=== PATIENT | female | born 1995 | race Caucasian/White ===

== ENCOUNTER 2023-10-02 07:24 | Inpatient (IN) ==
--- NOTE | 2023-09-14 16:37 | History & Physical Report ---
Date of Service September 14, 2023 Assessment & Plan (1) Previous delivery affecting : Plan: Intrauterine at 39+ weeks with prior section for failure to progress presents for repeat section. Procedure and its risks were reviewed with the patient and her sister and all questions were answered to their satisfaction. History of Present Illness Primary Care Provider: NO PCP Patient is a 28-year-old 2 para 1-0-0-1 female EDC 10/06/2023 who presents for repeat section. First section was done because of failure to progress. has been complicated by absence of CSP on anatomy scan at 20 weeks. M consultation with MRI revealed that the CSP is present. The placenta was also initially low-lying but that has since resolved. Polyhydramnios was also affecting the during the second trimester but this again has resolved. GBS is negative Allergies Allergy/AdvReac Type Severity Reaction Status Date / Time No Known Allergies Allergy Verified 08/28/23 13:54 Home Medications Medication Instructions Recorded Confirmed Type [id number] acid PO 03/27/23 08/28/23 History valacyclovir 500 mg tablet 500 mg PO BID PRN outbreak #18 tabs 03/29/23 08/28/23 Rx (Valtrex) Patient History Medical History (Updated 07/19/23 @ 11:49 by Mariah Worthy) Varicella vaccine Surgical History (Updated 09/14/23 @ 16:38 by Merle Lomas MD, FACOG) History of Family History (Updated 03/27/23 @ 10:55 by Christy Hernández, TOD) Grandmother (Maternal) Breast cancer Mother Colorectal cancer Grandfather (Maternal) Colorectal cancer Denies family history of Ovarian cancer Prostate cancer Social History (Updated 03/27/23 @ 10:57 by Christy Hernández, TOD) Smoking Status: Never smoker Do You Dip or Chew Tobacco: No; marital status: Single marital status details: FOB Chuck Cat (27). Pt sister Sherri - [phone] Current Living Situation: Significant Other Current Living Situation Comment: lives with FOB, and pts father, 2 cats(fob changing litter), 1 dog. current occupational status: employed current occupation: [employer] Review of Systems All systems reviewed & are unremarkable except as noted in HPI & below Physical Exam Constitutional: WD/WN, vitals as above Respiratory: normal respiratory effort, lungs clear to auscultation Cardiovascular: RRR, no murmur, no edema Psychiatric: A+Ox3, euthymic affect Genitourinary: OB Exam Abdomen: + fundal height (term), + heart tones (150) and + vertex Coding Level of Care Code None Diagnoses Previous delivery affecting O34.219
--- NOTE | 2023-09-25 14:43 | Anesthesiology Consultation ---
Date of Service September 25, 2023 Assessment & Plan (1) Encounter for pre-operative examination: - Per art framing manager on 09/25/23: COVID greater than 10 days from surgery date, symptoms resolved. Chart Review Chart Review: entry level management initiated History Surgery Operation Date: 10/02/23 10:50 Proposed Procedures p Section (Delivery of Baby Through Abdominal Incision) - Merle Lomas MD, FACOG Height/Weight Height: 5 ft 4 in Weight: 67.132 kg Allergies Allergy/AdvReac Type Severity Reaction Status Date / Time No Known Allergies Allergy Verified 09/25/23 13:46 Medications Home Medications Medication Instructions Recorded Confirmed Last Taken valacyclovir 500 mg tablet 500 mg PO BID PRN outbreak #18 tabs 03/29/23 09/25/23 Unknown (Valtrex) vit no.95-ferrous 1 tab PO QAM 09/25/23 09/25/23 Unknown fumarate 28 mg-folic acid 800 mcg tablet () Past Medical History Medical History (Updated 09/25/23 @ 14:42 by Jennifer Spencer PA-C) Anxiety History of COVID-19 09/17/2023--via home test---body aches, chills, sneezing, sore throat, sore ears, fatigue, fever--per pt all symptoms resolved Past Family History Family History Grandmother (Maternal) Breast cancer Mother Colorectal cancer Grandfather (Maternal) Colorectal cancer Other No family history of adverse response to anesthesia Denies family history of Ovarian cancer Prostate cancer Past Surgical History Surgical History History of History of wisdom tooth extraction Social History Smoking Status: Never smoker Do You Dip or Chew Tobacco: No Hx Alcohol Use: No Hx Substance Use: No substance use type: does not use
--- NOTE | 2023-10-02 07:46 | History & Physical Bridge Note ---
Date of Service October 02, 2023 History & Physical Bridge Note I have examined the patient, reviewed the History & Physical and in the interval since the performance of the History & Physical I have noted the following changes of clinical significance: no changes noted
[2023-10-02] MEDS: LACTATED RINGER'S 1,000 ML IV SCH ×2 (09:00→13:28)
[2023-10-02] MEDS: ACETAMINOPHEN 500 MG TAB PO STA (09:20)
[2023-10-02 09:51] LABS: Hematocrit (blood only) 35.7 % (37.0-47.0); Hemoglobin 11.4 g/dl (12.0-16.0); Mean Corpuscular Hemoglobin 26.5 pg (25.0-34.0); Mean Corpuscular Hgb Conc 31.9 g/dL (32.0-36.0); Mean Corpuscular Volume 82.8 fL (80.0-100.0); Mean Platelet Volume 11.8 fL (9.4-12.4); Platelet Count 213 K/uL (130-400); Red Blood Count 4.31 M/uL (4.20-5.40); White Blood Count 9.43 K/ul (4.8-10.8)
[2023-10-02] MEDS: CITRIC ACID/SODIUM CITRATE 15 ML UDC PO SCH (10:03)
[2023-10-02] MEDS ORDERED: MoRPHine SULFATE PF 1 MG/ML 10 ML AMP/VIAL ONE (10:31)
[2023-10-02] MEDS: ACETAMINOPHEN 500 MG TAB PO SCH (10:34)
[2023-10-02] MEDS: ceFAZolin 2000MG 2,000 MG/15 ML SYR IV SCH (10:39)
[2023-10-02] MEDS ORDERED: ePHEDrine sulfate 50 MG/ML AMP IV PRN (11:17)
[2023-10-02] MEDS ORDERED: NALOXONE HCL 0.08 MG in SYRINGE 1.8 ML IV PRN (11:17)
[2023-10-02] MEDS ORDERED: LACTATED RINGER'S 500 ML IV PRN (11:17)
[2023-10-02] MEDS ORDERED: NALBUPHINE HCL 5 MG in SYRINGE 0 ML IV PRN (11:17)
[2023-10-02] MEDS ORDERED: NALOXONE HCL 1 MG in SODIUM CHLORIDE 0.9% 1,000 ML IV PRN (11:17)
[2023-10-02] MEDS ORDERED: NALOXONE HCL 0.4 MG/1 ML VIAL/CARP IV PRN (11:17)
[2023-10-02] MEDS ORDERED: diphenhydrAMINE 50 MG/ML VIAL IV PRN ×2 (11:17→12:24)
[2023-10-02] MEDS ORDERED: PHENYLEPHRINE 100MCG/ML 10ML SYR IV ONE ×2 (11:21→11:57)
[2023-10-02] MEDS ORDERED: fentaNYL citrate PF 100 MCG/2 ML VIAL ONE (11:23)
[2023-10-02] MEDS ORDERED: NO NARCOTICS OR SEDATIVES SCH (11:30)
[2023-10-02] MEDS ORDERED: DC INTRASPINAL MORPHINE SCH (11:30)
[2023-10-02] MEDS ORDERED: ONDANSETRON INJ 2 MG/ML 2 ML VIAL ONE (11:46)
[2023-10-02] MEDS ORDERED: CALCIUM CARBONATE 500 MG CHEWABLE TAB PO PRN ×2 (11:47→12:24)
[2023-10-02] MEDS ORDERED: diphenhydrAMINE Capsule 25 MG CAP PO PRN ×2 (11:47→12:24)
[2023-10-02] MEDS ORDERED: HYDROCORTISONE ACETATE 25 MG SUPP PR PRN ×2 (11:47→12:24)
[2023-10-02] MEDS ORDERED: ONDANSETRON INJ 2 MG/ML 2 ML VIAL IV PRN ×3 (11:47→12:24)
[2023-10-02] MEDS ORDERED: MAGNESIUM HYDROXIDE SUSP 30 ML UDC PO PRN ×2 (11:47→12:24)
[2023-10-02] MEDS ORDERED: DIPHTHER/TETAN/PERTUS Vaccine (Tdap, Adol/Adult) 0.5mL IM ONE (11:47)
[2023-10-02] MEDS ORDERED: BENZOCAINE 20% SPRY 85 APPLN/85 GM CAN EXT PRN (11:47)
[2023-10-02] MEDS ORDERED: SENNA 8.6 MG TAB PO PRN ×2 (11:47→12:24)
--- NOTE | 2023-10-02 11:54 | Post Operative Brief Note ---
Immediate Post Op Note Date of Surgery October 02, 2023 Pre & Post Diagnosis Operation Date: 10/02/23 09:05 Pre-Op Dx- IUP at term prior C/S desires repeat C/S Post-Op Dx- same plus delivery of viable malex I identified the patient and participated in the time-out.: Yes Procedure Operation Date: 10/02/23 09:05 Actual Procedures p Section in LD with result of live male child at 1119 - Merle Lomas MD, FACOG Surgeon Merle Lomas MD, FACOG Deck And Hull Assembler Dr. Philip Best Quantitative Blood Loss (QBL) 461 Findings Consistent with Post-Op Diagnosis Specimens Specimen Description: A: Placenta B: Cord Blood Drains Durham Catheter (Durham placed in OR, draining clear yellow urine. Patient tolerated procedure well.) Anesthesia Type Spinal Complications none Disposition Accompanied Patient To Recovery: Yes Disposition: L&D
[2023-10-02] MEDS ORDERED: OXYTOCIN 10 UNITS/ML VIAL ONE (11:56)
[2023-10-02] MEDS ORDERED: IBUPROFEN 600 MG TAB PO SCH ×2 (12:00→12:30)
[2023-10-02] MEDS ORDERED: ACETAMINOPHEN 325 MG TAB PO SCH ×2 (12:00→12:30)
[2023-10-02] MEDS ORDERED: LACTATED RINGER'S 1,000 ML IV SCH (12:00)
[2023-10-02] MEDS ORDERED: OXYTOCIN 30 UNITS/LR 1,003 ML IV SCH (12:00)
[2023-10-02] MEDS ORDERED: MoRPHine SULFATE 2 MG/ML CARP IV PRN (12:04)
[2023-10-02] MEDS ORDERED: ACETAMINOPHEN 1,000 MG/100 ML VIAL IV PRN (12:04)
[2023-10-02] MEDS ORDERED: KETOROLAC 30 MG/ML VIAL IV PRN (12:04)
[2023-10-02] MEDS ORDERED: METOCLOPRAMIDE HCL 10 MG in SODIUM CHLORIDE 0.9% 50 ML IV PRN (12:04)
[2023-10-02] MEDS ORDERED: HYDROmorphone INJ 0.5 MG/0.5 ML SYR IV PRN (12:04)
[2023-10-02] MEDS ORDERED: PROMETHAZINE HCL 12.5 MG in SODIUM CHLORIDE 0.9% 50 ML IV PRN ×2 (12:04→12:24)
[2023-10-02] MEDS ORDERED: oxyCODONE HCL IR 5 MG TAB (IMMEDIATE RELEASE) PO PRN (12:24)
[2023-10-02] MEDS ORDERED: KETOROLAC 30 MG/ML VIAL IV SCH (12:30)
--- NOTE | 2023-10-02 12:39 | Operative Report ---
Post Operative Report Pre & Post Diagnosis Operation Date: 10/02/23 09:05 Pre-Op Diagnosis: Repeat Section in LD Post-Op Diagnosis: Repeat Section in LD with result of live male child at 1119 I identified the patient and participated in the time-out.: Yes Procedure Operation Date: 10/02/23 09:05 Actual Procedures p Section in LD with result of live male child at 1119 - Merle Lomas MD, FACOG Surgeon Merle Lomas MD, FACOG Glass Furnace Tender Dr. Philip Best Quantitative Blood Loss (QBL) 461 Findings Consistent with Post-Op Diagnosis Gravid uterus consistent with a term in size bilateral ovaries and fallopian tubes were grossly normal Specimens Placenta to hold Drains Durham catheter to straight drainage clear urine at the end of the case Anesthesia Type Spinal Complications none Disposition Accompanied Patient To Recovery: Yes Disposition: L&D Indications Intrauterine at 39-3/7 weeks Prior section-desires repeat section Description of Procedure After the patient received adequate subarachnoid block she was prepped and draped in usual sterile fashion. Low transverse skin incision was made through her prior scar and carried to the fascia with the same scalpel. Fascial incision was then extended with Alva scissors. The edges were grasped with Gómez clamps and the underlying rectus muscles bluntly sharply dissected off of the overlying fascia. The peritoneum was elevated and entered sharply. The bladder was taken down off the anterior surface of the uterus and placed behind the bladder blade. The lower uterine segment was entered with a scalpel and extended transversely by stretching the incision in a cephalad and caudad direction. Membranes were ruptured for clear fluid. The was delivered in the vertex presentation with moderate fundal pressure and assistance of a Ki wi vacuum to bring the head up into the uterine incision. There was a double nuchal cord reduced prior to delivering the rest of the infant. Rest of the infant delivered easily. He was crying vigorously moving all 4 limbs. The cord was clamped and cut and the infant handed off to Dr. Roblero and the nursery team were in attendance at the delivery. The placenta was then expressed intact with a three-vessel cord. The uterine cavity was explored and found be free of any placental tissue or membranes. The uterus was closed in 2 layers in a running locking the right kidney fashion with 0 Monocryl. Hemostasis was satisfactory. The uterus was placed back inside the abdominal cavity. The gutters were checked and were clear of any clot or fluid. The uterine incision was examined once more and continue to have excellent hemostasis. The fascia was then closed in a running fashion with 0 Vicryl. After irrigating the subcutaneous layer, the skin edges were reapproximated with subcuticular stitch of 4-0 Vicryl. Patient tolerated the procedure well and was stable upon arrival back in labor and delivery I attest to the content of the Intraoperative Record and any orders documented therein. Any exceptions are noted below. OB Procedure Charges 70285
[2023-10-02] MEDS ORDERED: SIMETHICONE 80 MG CHEW PO SCH (13:00)
[2023-10-02] MEDS: MoRPHine SULFATE PF 1 MG/ML 10 ML AMP/VIAL INT SPINAL ONE (13:29)
[2023-10-02] MEDS: SODIUM CHLORIDE 0.9% 1,000 ML IV SCH (13:29)
[2023-10-02] MEDS: SIMETHICONE 80 MG CHEW PO SCH (13:50)
[2023-10-02] MEDS: ACETAMINOPHEN 325 MG TAB PO SCH (13:50)
[2023-10-02] MEDS: IBUPROFEN 600 MG TAB PO SCH (13:50)
[2023-10-02] MEDS: OXYTOCIN 20 UNITS/LR 1,002 ML IV SCH (14:23)
--- NOTE | 2023-10-02 15:55 | Anesthesiology Progress Note ---
Date of Service October 02, 2023 Anesthesia Post Procedure Vital Signs Vital Signs: Temp Pulse Resp BP Pulse Ox 10/02/23 14:19 89 93 10/02/23 14:18 92 H 99 10/02/23 14:13 91 H 100 10/02/23 14:08 87 100 10/02/23 14:03 100 H 98 10/02/23 14:00 99 H 109/65 10/02/23 13:58 83 97 10/02/23 13:57 92 H 93 10/02/23 13:53 89 100 10/02/23 13:48 80 100 10/02/23 13:46 70 106/56 L 10/02/23 13:43 80 96 10/02/23 13:41 86 168/68 H 10/02/23 13:37 83 100 10/02/23 13:32 84 100 10/02/23 13:31 78 120/63 10/02/23 13:27 78 100 10/02/23 13:22 85 100 10/02/23 13:20 82 113/57 L 10/02/23 13:17 85 100 10/02/23 13:12 85 100 10/02/23 13:10 83 137/61 10/02/23 13:07 87 100 10/02/23 13:02 83 100 10/02/23 13:00 82 123/63 10/02/23 12:57 84 100 10/02/23 12:52 88 100 10/02/23 12:51 89 141/56 H 10/02/23 12:47 88 100 10/02/23 12:42 85 100 10/02/23 12:40 90 105/57 L 10/02/23 12:37 88 100 10/02/23 12:32 99 H 100 10/02/23 12:30 94 H 119/61 10/02/23 12:27 104 H 100 10/02/23 12:22 108 H 100 10/02/23 12:20 87 114/64 10/02/23 12:17 87 99 10/02/23 12:14 88 103/62 10/02/23 12:10 86 95/55 L 10/02/23 12:01 93 H 96/52 L 10/02/23 12:00 86 148/120 H 10/02/23 08:25 37.1 C 90 18 119/67 08/05/24 08:09 90 119/67 10/02/23 08:08 18 10/02/23 08:08 37.1 C 18 Transfer of Care Handoff Completed per policy Notes Mental Status: alert / awake / arousable and participated in evaluation Nausea / Vomiting: adequately controlled Pain: adequately controlled Airway Patency, RR, SpO2: stable & adequate BP & HR: stable & adequate Hydration State: stable & adequate Neuraxial Anesthesia: was administered and sensory block is resolving Anesthetic Complications: no major complications apparent and Pt Satisfied with anesthetic care
[2023-10-02] MEDS: DOCUSATE SODIUM 100 MG CAP PO SCH (20:27)
[2023-10-02] MEDS ORDERED: DOCUSATE SODIUM 100 MG CAP PO SCH (21:00)
[2023-10-03] MEDS ORDERED: diphenhydrAMINE 50 MG/ML VIAL IV PRN (05:18)
[2023-10-03] MEDS ORDERED: PROMETHAZINE HCL 12.5 MG in SODIUM CHLORIDE 0.9% 50 ML IV PRN (05:18)
[2023-10-03] MEDS ORDERED: HYDROmorphone INJ 0.5 MG/0.5 ML SYR IV PRN (05:18)
[2023-10-03 06:51] LABS: Basophils # (auto) 0.05 K/uL (0.00-0.20); Basophils % (auto) 0.4 %; Eosinophils # (auto) 0.05 K/uL (0.00-0.50); Eosinophils % (auto) 0.4 %; Hematocrit (blood only) 34.5 % (37.0-47.0); Hemoglobin 10.9 g/dl (12.0-16.0); Immature Granulocytes # (auto) 0.05 K/uL (0.01-0.20); Immature Granulocytes % (auto) 0.4 %; Lymphocytes # (auto) 2.94 K/uL (1.20-3.40); Lymphocytes % (auto) 23.7 %; Mean Corpuscular Hemoglobin 26.5 pg (25.0-34.0); Mean Corpuscular Hgb Conc 31.6 g/dL (32.0-36.0); Mean Corpuscular Volume 83.7 fL (80.0-100.0); Mean Platelet Volume 11.5 fL (9.4-12.4); Monocytes # (auto) 0.88 K/uL (0.11-0.59); Monocytes % (auto) 7.1 %; Neutrophils # (auto) 8.42 K/uL (1.40-6.50); Platelet Count 222 K/uL (130-400); RDW Coefficient of Variation 14.1 % (11.5-14.5); RDW Standard Deviation 42.5 fL (36.4-46.3); Red Blood Count 4.12 M/uL (4.20-5.40); White Blood Count 12.39 K/ul (4.8-10.8)
--- NOTE | 2023-10-03 07:58 | Obstetrical Progress Note ---
Date of Service <Jay Best MD - Last Filed: 10/03/23 08:02> October 03, 2023 Assessment & Plan <Jay Best MD - Last Filed: 10/03/23 08:02> (1) Encounter for assessment: visit type: exam and care immediately after delivery Qualified Code(s): Z39.0 - Encounter for care and examination of mother immediately after delivery Plan Pt is a 28 y/o female who is now PPD#1 following repeat LTCS at 39 weeks PPD 1: stable, routine management -Patient is voiding and ambulating on their own power -Pain is well controlled on as needed analgesia -Tolerating regular diet without nausea or vomiting -Planned to Breast feed * Reassess d/c readiness tomorrow * 6 weeks OB outpatient follow-up <Harjeet Young MD - Last Filed: 10/03/23 08:27> (1) Encounter for assessment: Subjective <Jay Best MD - Last Filed: 10/03/23 08:02> Ambulation: ambulating normally Voiding: no voiding problems Diet Tolerance:: regular diet Lochia:: Moderate Feeding Type:: breast feeding Pt is a 28 y/o female who is now PPD#1 following LTCS at 39 weeks. Reports feeling well overall this morning. minimal abdominal cramping and 4/10 pain, well managed on analgesics. Voiding ok. Tolerating meals and able to ambulate some. passing gas but no bowel movements. Some persistent lochia with overall improvement as of this morning. Breast feeding. Review of Systems -Denies fever or chills -Denies dyspnea, chest pain, or palpitations -Denies breast pain -Denies dysuria -Denies headache or changes in vision Physical Exam <Jay Best MD - Last Filed: 10/03/23 08:02> General: Alert and oriented. No acute distress Cardiac: Regular rate and rhythm, no murmurs appreciated Respiratory: Lungs clear to auscultation bilaterally, No increased work of breathing Abdominal: Soft, non-tender, non-distended. Bowel sounds present. Uterus: Uterine fundus firm, palpable below umbilicus, surgical scar site clean - no signs bleeding or infection Extremities: No lower extremity edema, calves non-tender bilaterally Results & Data <Jay Best MD - Last Filed: 10/03/23 08:02> Vital Signs (Past 12 Hours) Vital Signs Temp Pulse Resp BP BP Pulse Ox O2 Del Method 10/03/23 07:49 36.5 C 64 16 91/57 L 99 Room Air 10/03/23 05:17 16 96 10/03/23 04:57 16 97 10/03/23 04:50 36.5 C 82 16 94/58 L 98 Room Air 10/03/23 04:00 16 96 10/03/23 02:59 16 96 10/03/23 02:00 18 98 10/03/23 00:57 16 97 10/03/23 00:00 16 97 10/02/23 23:45 36.6 C 65 16 95/58 L 98 Room Air 10/02/23 23:00 16 98 10/02/23 22:00 16 99 10/02/23 21:01 18 97 10/02/23 20:40 Room Air 10/02/23 20:40 36.5 C 79 16 99/61 L 98 Room Air 10/02/23 20:00 16 98 Supervising Physician <Harjeet Young MD - Last Filed: 10/03/23 08:27> Co-Signing Physician Notes Patient seen with resident and agree with the above findings and plan. Continue routine care Resident Activity Tracking <Jay Best MD - Last Filed: 10/03/23 08:02> Resident Involvement: Resident Care Provided Care Provided: OB Delivery
[2023-10-03] MEDS ORDERED: PRENATAL VITAMIN 1 TAB PO SCH ×2 (08:00)
[2023-10-03] MEDS: FERROUS SULFATE 325 MG TAB PO SCH (09:19)
[2023-10-03] MEDS: oxyCODONE HCL IR 5 MG TAB (IMMEDIATE RELEASE) PO PRN (11:35)
[2023-10-03] MEDS: bisacodyL 5 MG TABEC PO SCH (19:42)
[2023-10-03] MEDS ORDERED: bisacodyL 5 MG TABEC PO SCH (20:00)
[2023-10-04 01:09] VITALS: RESP 16
[2023-10-04 06:07] LABS: Hematocrit (blood only) 28.4 % (37.0-47.0)
[2023-10-04] MEDS ORDERED: PROMETHAZINE 12.5 MG/50.5 ML BAG IV PRN (06:52)
--- NOTE | 2023-10-04 07:14 | Obstetrical Progress Note ---
Date of Service <Jay Best MD - Last Filed: 10/04/23 07:18> October 04, 2023 Assessment & Plan <Jay Best MD - Last Filed: 10/04/23 07:18> (1) Encounter for assessment: visit type: exam and care immediately after delivery Qualified Code(s): Z39.0 - Encounter for care and examination of mother immediately after delivery Plan Pt is a 28 y/o female who is now PPD#2 following repeat LTCS at 39 weeks PPD 2: stable, routine management -Patient is voiding and ambulating on their own power -Pain is well controlled on as needed analgesia -Tolerating regular diet without nausea or vomiting -Planned to Breast feed * Plan d/c today * 6 weeks OB outpatient follow-up <Rosita Wiley MD - Last Filed: 10/04/23 07:19> (1) Encounter for assessment: Subjective <Jay Best MD - Last Filed: 10/04/23 07:18> Ambulation: ambulating normally Voiding: no voiding problems Diet Tolerance:: regular diet Lochia:: Moderate Feeding Type:: breast feeding Pt is a 28 y/o female who is now PPD#2 following repeat LTCS at 39 weeks. Reports feeling well overall this morning. minimal abdominal cramping and 4/10 pain, well managed on analgesics. Voiding ok. Tolerating meals and able to ambulate some. passing gas but no bowel movements. Some persistent lochia with overall improvement as of this morning. Breast feeding. Review of Systems -Denies fever or chills -Denies dyspnea, chest pain, or palpitations -Denies breast pain -Denies dysuria -Denies headache or changes in vision Physical Exam <Jay Best MD - Last Filed: 10/04/23 07:18> General: Alert and oriented. No acute distress Cardiac: Regular rate and rhythm, no murmurs appreciated Respiratory: Lungs clear to auscultation bilaterally, No increased work of breathing Abdominal: Soft, non-tender, non-distended. Bowel sounds present. Uterus: Uterine fundus firm, palpable below umbilicus, surgical scar site clean - no signs bleeding or infection Extremities: No lower extremity edema, calves non-tender bilaterally Results & Data <Jay Best MD - Last Filed: 10/04/23 07:18> Vital Signs (Past 12 Hours) Vital Signs Temp Pulse Resp BP Pulse Ox O2 Del Method 10/04/23 01:05 36.5 C 71 16 97/62 L 99 Room Air 10/03/23 19:46 36.5 C 89 18 107/71 100 Room Air Supervising Physician <Rosita Wiley MD - Last Filed: 10/04/23 07:19> Co-Signing Physician Notes Resident Physician Supervision Note: I interviewed and examined the patient. Discussed with Dr. Mohr and agree with findings and plan as documented in the note. Any exceptions or clarifications are listed here: POD2 s/p rLTCS, stable for dc Documented By: Rosita Wiley MD Resident Activity Tracking <Jay Best MD - Last Filed: 10/04/23 07:18> Resident Involvement: Resident Care Provided Care Provided: OB Delivery
[2023-10-04 11:09] VITALS: BP 121/76; TEMP 97.3; O2SAT 100
[2023-10-04 11:20] VITALS: PULSE 71
[2023-10-04] MEDS ORDERED: IBUPROFEN 600 MG TAB PO PRN ×2 (11:48→12:24)
[2023-10-04] MEDS ORDERED: ACETAMINOPHEN 325 MG TAB PO PRN ×2 (11:48→12:24)
[2023-10-04] MEDS ORDERED: bisacodyL 10 MG SUPP PR PRN ×2 (11:48→12:24)
--- NOTE | 2023-10-05 12:56 | Discharge Summary ---
Date of Service October 05, 2023 Admission HPI Per Admitting Provider Patient is a 28-year-old 2 para 1-0-0-1 female EDC 10/06/2023 who presents for repeat section. First section was done because of failure to progress. has been complicated by absence of CSP on anatomy scan at 20 weeks. M consultation with MRI revealed that the CSP is present. The placenta was also initially low-lying but that has since resolved. Polyhydramnios was also affecting the during the second trimester but this again has resolved. GBS is negative Admission Exam (Per Admitting) Constitutional WD/WN, vitals as above Respiratory normal respiratory effort, lungs clear to auscultation Cardiovascular RRR, no murmur, no edema Psychiatric A+Ox3, euthymic affect Genitourinary OB Exam Abdomen: + fundal height (term), + heart tones (150) and + vertex Discharge Data Consultations 10/02/23 09:26 Consult Anesthesiology Stat Procedures Performed Operation Date: 10/02/23 09:05 Actual Procedures p Section in LD with result of live male child at 1119 - Merle Lomas MD, [facility] Course (1) Encounter for assessment: Plan Pt is a 28 y/o female who is now PPD#2 following repeat LTCS at 39 weeks PPD 2: stable, routine management -Patient is voiding and ambulating on their own power -Pain is well controlled on as needed analgesia -Tolerating regular diet without nausea or vomiting -Planned to Breast feed * Plan d/c today * 6 weeks OB outpatient follow-up Discharge Plan Discharge Items Patient Disposition: Home - Self-Care Reason For Visit: History of Section Discharge Diagnosis: Activity: Per Instructions section Non-emergency contact: Manager Medical Call non-emergency contact if: you have any medication questions, your pain is worsening and your temperature is above 101.5 Follow-up/Referrals: PCP,NO [Primary Care Provider] - Diet: Regular Addtl Attending Provider Instructions: ACTIVITY RECOMMENDATIONS: * Gradual return to full activity over the next 2-3 weeks. * No lifting - nothing heavier than baby over the next 2-3 weeks. * Do not engage in vigorous exercise, sexual activity or sports until cleared by your physician. * Do not drive or operate any motorized equipment until cleared by your physician. * You may shower/bathe daily. MEDICATIONS: For discomfort or pain, you may use Acetaminophen (Tylenol), Ibuprofen (Advil), or Naproxen (Aleve) following the package directions. For constipation you may use Colace following the package directions. BREAST CARE: If you are not breast feeding: * Wear a supportive bra 24 hours a day for one to two weeks. * Avoid stimulating your breasts and nipples as much as possible during the first few weeks after delivery. * When taking a shower, have the warm water hit your back, not breasts. * When your breasts feel full, apply ice packs. Usually three to four times a day helps ease the discomfort. * Take a mild pain medication (Tylenol / Motrin) when you are uncomfortable. If breast feeding: * Use breast milk to lubricate nipples. Lansinoh cream may be used for sore nipples. You do not need to remove cream prior to breast feeding. If using a different brand of cream, check the label for directions regarding removal of cream prior to nursing. * Wear a supportive bra. * If having problems with breasts or breast feeding, call a middleware consultant or your health care provider. SPECIAL CARE INSTRUCTIONS: When you are discharged from the hospital, it is important for you to follow the instructions listed below: * During the first week at home, you should be able to care for yourself and your baby. In addition, the usual light household activities are encouraged. * Limit your activities to the way you feel. Do not try to clean the house or move furniture. Be sensible. * If you actively engage in sports and have done so up until the time of your delivery, you may resume these activities as soon as you feel able. This may take up to one month or even longer. Use good judgment. * Continue to take your vitamins for at least six weeks after the of your baby. * Your diet need not be limited unless you were on a special diet before your delivery. Breast-feeding mothers need around 2500 calories per day and at least 64-80 ounces of fluid per day (8 to 10 glasses). * You should eat foods from the four major food groups. Crash diets or fad diets are to be avoided. Eating lean meats, fresh fruits and vegetables, low-fat dairy products, high fiber foods and a regular exercise program, will help you get back to your pre- weight without putting your health at risk. * Constipation is sometimes a problem after delivery. Take a mild laxative as needed. If breast feeding, Milk of Magnesia is acceptable to use. You may use a suppository or Fleets enema. * A daily shower or tub bath is suggested. Wash incision daily with warm soapy water and pat dry. It doesn't need to be covered unless drainage is present. * A bloody vaginal discharge will usually continue until around four weeks po stpartum. A small amount of bleeding may continue for as long as six weeks. Vaginal discharge changes from the bright red bleeding after delivery to pink then brownish and finally yellowish-pink before becoming white and disappearing. * Bleeding may increase with activity. Your first period may come in 4-8 weeks. If you are breast feeding, your period may be delayed even longer. * [place] (sex) can begin whenever both you and your partner feel comfortable and do not have any form of genital infection. It is recommended that you wait at least six weeks for internal and external healing to occur. If you have questions, please talk to your health care practitioner. A condom should be used to prevent infection and . * Foreplay, gentle intercourse and lubrication is very important the first several times to prevent pain. A water-based lubricant such as K-Y jelly or Astroglide may be used. * If you have RH negative blood and your baby is RH positive, you will receive RHOGAM by injection prior to discharge. The nurse will give you a card to keep with you that has the date and place that you received RHOGAM after delivery. * During your care, you had a Rubella screen done to check for the presence of rubella antibodies in your blood. If your test was negative, you will receive a Rubella vaccine prior to discharge. This vaccine may cause a fever, soreness at the injection site and flu-like symptoms. If these symptoms persist, notify your health care practitioner. is not advised for one month after a Rubella vaccine. * Verbalizes understanding of car seat law as reviewed with patient nursing. * Car Seat hand-out given and reviewed with patient by nursing. * Shaken baby information reviewed with patient by nursing. Call you doctor if: * Heavy bleeding (saturating several pads an hour) or passing clots the size of your fist. * A fever >101 degrees F (38.3 degrees C) on two occasions four hours apart and/or chills. * Unusual pain in the pelvic or vaginal areas. * Call the doctor for any increased redness, drainage or swelling around the incision and any pain unrelieved by prescribed pain medication. * "Baby Blues" lasting longer than two weeks. If you have any questions or concerns, call your health care practitioner at . FOLLOW UP VISIT: * Please call the office at to schedule a 6 week examination. It is important you keep this appointment. It is important for you to make arrangements for either yearly or twice yearly check-ups thereafter. Pending Studies at Discharge: No Stand-Alone Forms: My [facility], Smoking Cessation Medications and DC Order Prescriptions: New oxycodone 5 mg tablet 5 mg PO Q6H Qty: 14 0RF Rx Instructions: Take 1 tablet every 6 hours as needed for pain (DME) breast pump Device See Rx Instructions .ROUTE .MEDSUPPLY Qty: 1 0RF Rx Instructions: As directed Continued valacyclovir [Valtrex] 500 mg tablet 500 mg PO BID PRN (Reason: outbreak) Qty: 18 0RF valacyclovir [Valtrex] 500 mg tablet 500 mg PO BID Qty: 60 0RF PNV [id number]-ferrous fumarate-FA [] 28 mg iron- 800 mcg Tablet 1 tab PO QAM Discharge Orders: Discharge Order (Routine); Ordered 10/04/23 Ordered By: Jay Saldivar/Other Patient Handouts: Understanding Blues, Understanding Psychosis, DVT in , Understanding Depression Admission Data Admit Date/Time: 10/02/23 07:24 Attending Provider: Merle Lomas Admit Provider: Merle Lomas Primary Care Provider: PCP,NO Other Interventions: Discharge Summary Assessment (RN) Last Done: 10/04/23 11:19 Coding Level of Care Code None Diagnoses Encounter for care or examination of mother immediately after delivery Z39.0 visit type: exam and care immediately after delivery
== END 2023-10-04 13:00 | disposition home or self-care (01) | DRG 788 ==
LOC: 4S1 07:24 → EDSTATUS 10:50 → 4E2 15:30
DX: Z37.0 Single live birth; O69.81X0 Labor and delivery complicated by cord around neck, without compression, not applicable or unspecified; Z3A.39 39 weeks gestation of pregnancy; O34.219 Maternal care for unspecified type scar from previous cesarean delivery